=== PATIENT | male | born 1995 | race Two or more races ===

== ENCOUNTER 2020-08-25 19:29 | Emergency (ER) | payer MEDICAID, OTHER ==
[~2020-08-25] VITALS: Ht 172.7 cm; Wt 147.7 kg
--- NOTE | 2020-08-25 20:40 | NUR ---
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 STEADY UPON AMBULATION. NO ACUTE DISTRESS NTOED.
[2020-08-25 21:54] LABS: ALBUMIN 3.4 g/dL (3.4-5.0); ANION GAP 4 mmol/L (5-15); CALCIUM 8.7 mg/dL (8.5-10.1); CHLORIDE 105 mmol/L (98-107); CREATININE 1.39 mg/dL (0.7-1.3)
[2020-08-25 21:56] LABS: ALKALINE PHOSPHATASE 154 U/L (45-117); BILIRUBIN,TOTAL 0.3 mg/dL (0.2-1.0); TOTAL PROTEIN 7.6 g/dL (6.4-8.2)
[2020-08-25 22:10] LABS: ALANINE AMINOTRANSFERASE 80 U/L (12-78)
[2020-08-25 22:50] LABS: BASOPHILS % (AUTO) 1 % (0-1); EOSINOPHILS % (AUTO) 1 % (1-7); LYMPHOCYTES % (AUTO) 23 % (22-44); MEAN CORPUSCULAR HEMOGLOBIN 31.9 pg (27.5-34.5); MEAN CORPUSCULAR HGB CONC 33.5 g/dL (33.2-36.2); MEAN PLATELET VOLUME 8.2 fL (7.4-10.4); MONOCYTES % (AUTO) 8 % (2-9); NEUTROPHILS % (AUTO) 67 % (42-75); PLATELET COUNT 316 x10^3/uL (130-400); RED BLOOD COUNT 4.95 x10^6/uL (4.38-5.82); RED CELL DISTRIBUTION WIDTH 13.8 % (9.4-14.8)
[2020-08-25 23:02] LABS: MD NO
[2020-08-25 23:36] VITALS: BP 114/78
== END 2020-08-25 23:38 | disposition home or self-care (01) ==
LOC: ED 21:00
DX: M10.072 Idiopathic gout, left ankle and foot (principal); R73.9 Hyperglycemia, unspecified
CPT/HCPCS: 36415; 80053; 84550; 85025; 99284

== ENCOUNTER 2021-04-08 18:50 | Emergency (ER) | payer OTHER ==
[~2021-04-08] VITALS: Ht 172.7 cm; Wt 141.0 kg
--- NOTE | 2021-04-08 22:26 | NUR ---
SOB , cough, loss of taste x3 days. pt denies covid vaccine, unknown covid contact. pt a&o, resps even and unlabored, vss.
--- NOTE | 2021-04-08 22:39 | NUR ---
per lab, pt refusing to get blood drawn. this rn educated pt on needed labwork and pt agrees to get labs drawn.
--- NOTE | 2021-04-08 22:53 | NUR ---
lab at bedside
--- NOTE | 2021-04-08 23:11 | NUR ---
norris Smallwood at bedside for eval
[2021-04-08 23:15] LABS: BASOPHILS % (AUTO) 0 % (0-1); EOSINOPHILS % (AUTO) 0 % (1-7); LYMPHOCYTES % (AUTO) 22 % (22-44); MEAN CORPUSCULAR HEMOGLOBIN 31.4 pg (27.5-34.5); MEAN CORPUSCULAR HGB CONC 33.6 g/dL (33.2-36.2); MEAN PLATELET VOLUME 9.3 fL (7.4-10.4); MONOCYTES % (AUTO) 13 % (2-9); NEUTROPHILS % (AUTO) 64 % (42-75); PLATELET COUNT 238 x10^3/uL (130-400); RED BLOOD COUNT 5.35 x10^6/uL (4.38-5.82); RED CELL DISTRIBUTION WIDTH 13.4 % (9.4-14.8)
[2021-04-08 23:21] LABS: ALANINE AMINOTRANSFERASE 62 U/L (12-78); ALBUMIN 2.9 g/dL (3.4-5.0); ANION GAP 8 mmol/L (5-15); CALCIUM 8.4 mg/dL (8.5-10.1); CHLORIDE 104 mmol/L (98-107); CREATININE 1.32 mg/dL (0.7-1.3)
[2021-04-08 23:23] LABS: ALKALINE PHOSPHATASE 123 U/L (45-117); BILIRUBIN,TOTAL 0.8 mg/dL (0.2-1.0); TOTAL PROTEIN 7.7 g/dL (6.4-8.2)
[2021-04-08 23:29] VITALS: BP 144/83
--- NOTE | 2021-04-08 23:53 | NUR ---
PIV placed, fluids infusing. ABX started after BC x2
[2021-04-09] MEDS ORDERED: AZITHROMYCIN 500 MG in SODIUM CHLORIDE 0.9% 250 ML IVPB ONE
[2021-04-09] MEDS ORDERED: SODIUM CHLORIDE 0.9% 1,000ML IVBOLUS ONE
[2021-04-09] MEDS ORDERED: CEFTRIAXONE 1,000 MG in DEXTROSE 5% 50 ML IVPB ONE
--- NOTE | 2021-04-09 00:25 | NUR ---
GALEN LAWRENCE AT BEDSIDE TO DISCUSS POC
--- NOTE | 2021-04-09 01:00 | NUR ---
pt educated on dc instructions and isolation, verbalized understanding. ambulatory to dc desk with steady gait.
== END 2021-04-09 01:02 | disposition home or self-care (01) ==
LOC: ED 23:59
DX: J18.9 Pneumonia, unspecified organism (principal); Z20.822 Contact with and (suspected) exposure to COVID-19; R94.31 Abnormal electrocardiogram [ECG] [EKG]
CPT/HCPCS: 36415; 71045; 80053; 83605; 84145; 85025; 87040; 93005; 96365; 96366; 99285; J0696; J7030; U0003; U0005; 99284